=== PATIENT | male | born 1990 | race Caucasian/White ===

== ENCOUNTER 2017-08-13 19:05 | Emergency (ER) | payer OTHER ==
[~2017-08-13] VITALS: Ht 182.9 cm; Wt 92.0 kg
[~2017-08-13 19:05] MED LIST: CYCL-319 PO; HYDR-3498 PO; IBUP-1542 PO
[2017-08-13 19:07] VITALS: Ht 182.9 cm; Wt 92.0 kg
[2017-08-13] MEDS ORDERED: BEN25 PO (19:26)
[2017-08-13] MEDS ORDERED: CETI10CA PO (19:27)
--- NOTE | 2017-08-13 19:33 | ERD ---
ER Documentation Chief Complaint Date/Time DATE: 08/13/17 TIME: 19:[address] for 3 months saw PCP yesterday dx with seasonal allergies HPI Patient is a 26-year-old male with no past medical history presents emergency department for concerns of throat pain 3 months. Patient states he saw his primary care physician yesterday who told the patient that he had seasonal allergies. Patient reports trying amoxicillin, Claritin and fluticasone nasal spray with no alleviation of symptoms over the last 3 months. Patient does report constant throat irritation. Patient denies any drooling, trismus or hyperextension of his neck. Patient denies any fevers or chills. Patient states that he does have postnasal drip. Patient states that his throat irritation is worse in the morning upon waking up. Patient said dry cough meds to an occasional dry cough and nasal rhinorrhea. Patient also admits to right ear pain. Patient denies any allergy testing. Patient denies any recent travel. No sick contacts. ROS All systems reviewed and are negative except as per history of present illness. Medications Home Meds Active Scripts Cetirizine Hcl* (Zyrtec*) 10 Mg Capsule, 10 MG PO DAILY, #30 TAB.CHEW Prov:DAKOTA FELICIANO PA-C 08/13/17 Diphenhydramine Hcl* (Benadryl*) 25 Mg Cap, 25 MG PO Q6, #30 CAP Prov:DAKOTA FELICIANO PA-C 08/13/17 Ibuprofen* (Motrin*) 600 Mg Tab, 600 MG PO Q6, #30 TAB Prov:RIKA BETHEA PA-C 06/19/15 Cyclobenzaprine Hcl* (Cyclobenzaprine Hcl*) 10 Mg Tablet, 10 MG PO TID, #15 TAB Prov:MICHEAL HERNANDEZ DO 06/07/15 Hydrocodone Bit-Acetaminophen* ([place]se[place]*) 5-325 Mg Tab, 1 TAB PO Q6 Y for PAIN, # 15 TAB Prov:MICHEAL HERNANDEZ DO 06/07/15 Allergies Allergies: Coded Allergies: No Known Allergy (Unverified , 06/19/15) PMhx/Soc Medical and Surgical Hx: pt denies Medical Hx, pt denies Surgical Hx History of Surgery: Yes (r. inguinal hernia) Hx Miscellaneous Medical Probl: Yes (Thrombocytopenia) Hx Alcohol Use: No Hx Substance Use: No Hx Tobacco Use: No Smoking Status: Never smoker Physical Exam Vitals Vital Signs Date Time Temp Pulse Resp B/P Pulse Ox O2 Delivery O2 Flow Rate FiO2 08/13/17 19:07 98.4 84 16 144/86 98 Physical Exam GENERAL: Well-developed, well-nourished male. Appears in no acute distress. HEAD: Normocephalic, atraumatic. No deformities or ecchymosis. EYE: Pupils equal, round, and reactive to light. EOMs intact. No conjunctival erythema. No eye discharge. ENT: External ear without any masses or tenderness. Auditory canals clear bilaterally. TM visualized bilaterally, non-erythematous, non-bulging. Nasal mucosa pink with no discharge. Oropharynx is pink without any tonsillar erythema or exudates. Tonsillar stone noted on L upper tonsil. No uvula deviation. No kissing tonsils. No drooling. No trismus. NECK: Supple. No meningismus. Normal ROM of the neck. LUNG: Clear to auscultation bilaterally. No rhonchi, wheezing, rales or coarse breath sounds. HEART: Regular rate and rhythm. No murmurs, rubs or gallops. BACK: No midline tenderness. EXTREMITIES: Equal pulses bilaterally. No peripheral clubbing, cyanosis or edema. No unilateral leg swelling. NEUROLOGIC: Alert and oriented to person, place and time. Moving all four extremities. 5/5 strength in all extremities. Normal speech. Steady gait. SKIN: Normal color. Warm and dry. No rashes or lesions. Procedures/MDM MEDICAL DECISION MAKING: This is a 26-year-old male who presents the ED with concerns of throat pain 3 months. Patient reports trying amoxicillin Claritin and take his own nasal spray with no alleviation of symptoms. Patient was recently by his PCP that he had seasonal allergies. Vital signs were reviewed. Patient was afebrile. Patient was not hypoxic. The patient does not have trismus, muffled voice, uvula deviation, unilateral tonsillar swelling, or drooling. No signs of neck swelling or hyperextension of the neck noted. Given these findings, the patient' s presentation is most consistent with throat irritation secondary to allergies. I have a much lower clinical suspicion for epiglottitis, peritonsillar abscess, retropharyngeal abscess, Olman's angina, strep pharyngitis, mononucelosis, dental abscess, meningitis, sepsis. PRESCRIPTIONS: Zyrtec, Benadryl DISCHARGE: At this time, patient is stable for discharge and outpatient management. Supportive therapies such as OTC throat lozenges and warm salt water gurgles were discussed. I have instructed the patient to follow-up with his/her primary care physician in 1-2 days. I have discussed with the patient the possibility of needing to see a specialist for further workup and imaging studies if symptoms persist. I have instructed the patient to promptly return to the ER for any new or worsening symptoms including increased pain, fever, nausea, vomiting, weakness or LOC. The patient and/or family expressed understanding of and agreement with this plan. All questions were answered. Home care instructions were provided. Disclaimer: Inadvertent spelling and grammatical errors are likely due to EHR/ dictation software use and do not reflect on the overall quality of patient care. Also, please note that the electronic time recorded on this note does not necessarily reflect the actual time of the patient encounter. Departure Diagnosis: Primary Impression: Allergic rhinitis Chronicity: acute Allergic rhinitis trigger: unspecified Allergic rhinitis seasonality: unspecified seasonality Qualified Code: J30.9 - Acute allergic rhinitis, unspecified seasonality, unspecified trigger Additional Impression: Throat pain Condition: Stable Patient Instructions: Causes of Nasal Allergies Referrals: NORMAN KELSEY MD,MADONNA FARR,NILESH MCDANIEL,MARILIA BECKHAM MD, M.D. Additional Instructions: Call your primary care doctor TOMORROW for an appointment during the next 1-2 days.See the doctor sooner or return here if your condition worsens before your appointment time. Follow up with your primary care doctor for referral to an uniforms sales representative and ENT specialist. DAKOTA FELICIANO PA-C Aug 13, 2017 19:33
== END 2017-08-13 19:33 | disposition home or self-care (01) ==
LOC: FTE 19:05
DX: J30.9 Allergic rhinitis, unspecified (principal)
CPT/HCPCS: 99283

== ENCOUNTER 2018-10-25 16:11 | Emergency (ER) | END 2018-10-25 19:29 | disposition home or self-care (01) ==